=== PATIENT | female | born 1965 | race Caucasian/White ===

== ENCOUNTER 2025-01-13 00:44 | Inpatient (IN) | payer MEDICAID ==
[~2025-01-13] VITALS: Ht 152.4 cm; Wt 95.5 kg
[2025-01-13] VITALS (18 sets, daily range): BP systolic 94–160; BP diastolic 40–85; PULSE 96–120; RESP 12–20; TEMP 98.1–98.5; O2SAT 93–99
--- NOTE | 2025-01-13 00:49 | Physician Documentation ---
History of Present Illness Stated Complaint: XFER Time Seen by MD: 00:47 OK to notify your PCP?: Yes Source: patient, RN/MD, RN notes reviewed, old records Mode of Arrival: EMS Exam Limitations: no limitations HPI 59 year old female seen in bed 09 presents to the emergency department via EMS as a transfer from [place] due to obstructive uropathy. HPI per [place]: Ada Marquez is a 59 year olf female with a history of diabetes, CHF, CVA, seen last evening and diagnosed with UTI who presents to the ED for evaluation of vomiting and unable to take antibiotics last night and a dose this morning however over the course of today she shas had persistent nausea with non bloody nonbilious emisin on arrival to Ed. She complains of abdominal pain midline which is new from last evening, sharp intermittent increased intensity up to an 8/1, increased frequency of urination and mild dysuria, koffi flank pain. She denies associated chest pain, shortness of breath, cough, diarrhea, extremity edema. Previous abdominal surgeries include hysterectomy, hernia repair. Imaging per [place]: CT Abdomen Pelvis wo IV Contrast: Impressions: 1. Worsening right sided hydronephrosis and hydroureter with obstructing mid ureter stone in new since the prior exam. 2. 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 Significant Labs: WBC: hortencia from 13 to 20. Creatinine hortencia from 1.9 to 2.18 Glucose: 458 Lactic Acid: 2.9 Medication Reconciliation Allergies: Coded Allergies: codeine (Verified Allergy, Mild, VERTIGO, 01/13/25) lactose (Verified Allergy, Mild, N/V, 01/13/25) sulfamethoxazole (Verified Allergy, Mild, RASH, 01/13/25) trimethoprim (Verified Allergy, Mild, RASH, 01/13/25) Uncoded Allergies: CEFTRIXONE (Allergy, Mild, RASH, 01/13/25) Scheduled Dapagliflozin Propanediol (Farxiga), 1 TAB PO DAILY, (Reported) Furosemide (Furosemide), 1 TAB PO DAILY, (Reported) Insulin Glargine,Hum.rec.anlog* (Lantus*), 30 UNITS SQ HS, (Reported) Lisinopril (Lisinopril), 1 TAB PO DAILY, (Reported) Metformin HCl (Metformin HCl), 1 TAB PO BID, (Reported) Miscellaneous Medications Atorvastatin Calcium (Atorvastatin Calcium), (Reported) Gabapentin (Gabapentin), (Reported) Nph, Human Insulin Isophane (Novolin N), SQ, (Reported) Ropinirole Hcl (Ropinirole Hcl), (Reported) Unable to Obtain Medications (Unable to Obtain Medications), (Reported) Durable Medical Equipment Blood-Glucose Sensor (Dexcom G7 Sensor), (Reported), (DME) Past Medical History Past Medical History: CVA/TIA/Stroke, Congestive Heart Failure, Hernia, Diabetes Past Surgical History: hysterectomy, other Review of Systems All Other Systems at this time: Reviewed and Negative ROS As stated above in the HPI, otherwise all systems are reviewed and negative. Physical Exam Vital Signs: RN Vital Signs have been reviewed: Yes Pulse Oximetry Reflects: adequate oxygenation Physical Exam General: [place]. The patient is well developed, well nourished, nontoxic appearing and is in no acute distress. Skin: [place], warm and dry with no rashes. HEENT: Head was normocephalic and atraumatic. Eyes - pupils equal, round, reactive to light and accommodation. Extraocular movements were intact. Conjunctivae were nonicteric. Ears - bilateral tympanic membranes were normal. The mouth and oropharynx were clear with moist mucous membranes. There were no pharyngeal exudates or erythema. Neck: Supple and nontender. There was no jugular venous distention, lymphadenopathy, thyromegaly or masses. Chest: Clear to auscultation bilaterally without wheezes, rales or rhonchi. No accessory muscle use. No dullness to percussion. Heart: Rate regular and rhythmic. S1, S2. No murmurs. Palpation of the chest wall was normal. No rubs or thrills. Abdomen: Hypoactive bowel sounds. Tenderness to palpitation in the midline. and nondistended. No guarding or rebound. No hepatosplenomegaly or palpable masses. Extremities: No cyanosis, clubbing or edema. The patient moves all extremities. Pulses were equal and symmetric. Neurologic: Cranial nerves II-XII were intact. Sensation was intact to light touch throughout. Motor strength was 5/5 in all four extremities. Deep tendon reflexes were intact in both upper and lower extremities. Psychologic: The patient was oriented to person, place and time. The patient demonstrated appropriate judgement and insight. Progress Progress Note 0208: Admission orders were kindly entered at this time. Results/Orders Reviewed/noted all lab results: Yes Results/Orders Orders - RIVAS LOZA MD Cbc/Diff (01/13/25 00:47) MG (01/13/25 00:47) Urinalysis, Cult If Indicated (01/13/25 00:47) BMP (01/13/25 00:47) Re-Evaluation Re-Evaluation : Re-Evaluation: Improved Progress Patient was seen and examined. Patient is given reassurance. Patient was transferred from a facility up in [facility] for obstructive uropathy. Patient is being transferred for emergent urology consultation. Laboratory work was reobtained showing continued leukocytosis with a WBC of 18.7 no anemia left shift of 87.6. The patient's chemistry shows elevated glucose at 3:30 a.m. but also a BUN of 22 and a creatinine of 2.26. The renal failure is assumed to be new. Patient was hydrated given additional fluids. Procalcitonin was also elevated at 8.38 consistent with infection. Patient's hyperglycemia was treated with some insulin. Patient was already treated at the other facility. Messages were left with Urology as well as the hospitalist service who kindly agreed to admit the patient for further workup and care. 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 Pulse oximetry monitor interpretation shows normal oxygenation at 98% room air, normal, my interpretation. EKG/XRAY/CT/US/VASC/MRI EKG : Additional Comment [facility] Test Date: 2025-01-13 Test Time: 00:59:00 Pat Name: ADA MARQUEZ Department: [facility] Patient ID: [facility]-[id number] Room: Gender: F Park Maintainer: : 1965 Requested By: RIVAS LOZA Order Number: [id number] Reading MD: Dr. Rivas Loza Measurements Intervals [place] Rate: 97 P: 30 [place]: 160 QRS: -7 QRSD: 76 T: 18 QT: 366 QTc: 465 Interpretive Statements Sinus rhythm Borderline T abnormalities, anterior leads Baseline wander in lead(s) I,aVL,V2 Electronically Signed On 01-13-2025 1:31:[address] Rivas Loza Please click the below link to view image of tracing. EKG Date and Time:01/13/25 0059 Electronically Signed by: RIVAS LOZA MD Date and Time: 01/13/25 0131 Medical Decision Making Additional info obtained from: old records Differential Dx:Considerations: Include: Appendicitis, Bowel obstruction, Cholangitis, Cholelithasis, Constipation, Esophageal rupture, Esophagitis, Gastritis/PUD, Gastroenteritis, GI hemorrhage, Hernia, Hepatitis, Inflammatory BD, Ischemic bowel, Pancreatitis, PID, Urinary tract infection, Urolithiasis, Other Departure Time of Disposition: 02:23 Disposition: 09 ADMITTED INPATIENT Admitted to Inpatient Unit: yes, to hospitalist, other (Urology) Admission Level of Care: Med/Surg with Tele Impression: Primary Impression: UTI (urinary tract infection) Qualified Codes: N30.01 - Acute cystitis with hematuria Additional Impression: Obstructive uropathy Condition: Fair Referrals: NO PRIMARY CARE PROVIDER (PCP) Education Educated: Patient Educated regarding: diagnosis Critical Care Note Total Time (mins): 30 Critical Care Note The very real possibility of a deterioration of this patient's condition required the highest level of my preparedness for sudden, emergent intervention. I provided critical care services, which included medication orders, frequent reevaluations of the patient's condition and response to treatment, ordering and reviewing test results, and discussing the case with various consultants. Excludes time spent performing separately billable procedures. The critical care time associated with the care of the patient was 30 minutes. Signature Scribe Signature: Scribed for Rivas Loza MD by Jose Carlos Mendez . 01/13/25 01:46 Attestation: The note accurately reflects work and decisions made by me.Rivas Loza MD 01/13/25 00:49 RIVAS LOZA MD Jan 13, 2025 00:49 JOSE CARLOS RODRIGUEZ Jan 13, 2025 01:38
--- NOTE | 2025-01-13 01:00 | ELECTROCARDIOGRAPH REPORT ---
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 Rivas Lockett Measurements Intervals [place] Rate: 97 P: 30 [place]: 160 QRS: -7 QRSD: 76 T: 18 QT: 366 QTc: 465 Interpretive Statements Sinus rhythm Borderline T abnormalities, anterior leads Baseline wander in lead(s) I,aVL,V2 Electronically Signed On 01-13-2025 1:31:[address] Rivas Lockett Please click the below link to view image of tracing.
[2025-01-13 01:32] LABS: MEAN PLATELET VOLUME 6.8 FL (7.4-10.4); RED CELL DISTRIBUTION WIDTH 14.2 % (11.5-14.5)
[2025-01-13 01:43] LABS: CREATININE 2.26 MG/DL (0.40-0.90); TOTAL CARBON DIOXIDE 25.0 MMOL/L (24-32); eCRCL 19 ML/MIN; eGFR 22 ML/MIN
[2025-01-13] MEDS: insulin regular, human 10 units/0.1 ml syringe SQ ONE (01:59)
[2025-01-13] MEDS ORDERED: mag hydrox/Alum hydrox/simeth 30ml oral suspension PO PRN (02:05)
[2025-01-13] MEDS ORDERED: magnesium hydroxide 30ml (MOM) UD suspension PO PRN (02:05)
[2025-01-13] MEDS ORDERED: piperacillin/tazo 4.5gm/100ml 100 ML IV SCH (02:05)
[2025-01-13] MEDS ORDERED: magnesium Cl slow-release 64mg tablet PO PRN (02:05)
[2025-01-13] MEDS ORDERED: magnesium sulf-water 4G/100mL 100 ML IV PRN (02:05)
[2025-01-13] MEDS ORDERED: HYDROcodone/acetaminophen 5mg/325mg tablet PO PRN (02:05)
[2025-01-13] MEDS ORDERED: magnesium sulf-water 2g/50mL 50 ML IV PRN (02:05)
[2025-01-13] MEDS ORDERED: potassium Cl 40MEQ/1/2NS 520ml 520 ML IV PRN (02:05)
[2025-01-13] MEDS ORDERED: UNABLE TO OBTAIN (02:19)
--- NOTE | 2025-01-13 02:24 | HISTORY AND PHYSICAL-Residence ---
History & Physical Providers to CC Resident Creating Document: RAVI CAMPBELL, RES CC: IVETTE EPPERSON MD ~ History of Present Illness Reason for Admit\Complaint: Vomitings and abdominal pain History of Present Illness A 59-year-old female with past medical history of diabetes, CHF, CVA with no residual deficits presented as a transfer from [facility] in view of abdominal pain and vomitings. Patient states that she has been having multiple episodes of vomitings with associated nausea disabling her to take any antibiotics prescribed for UTI since two days. Patient also complains of abdominal pain umbilical in location with 8/10 in severity, sharp in character with no radiation, no aggravating or relieving factors. Patient endorses increased frequency of urination mild dysuria, denies flank pain, fever, chills. Patient denies chest pain, SOB, cough, diarrhea. Allergies: Coded Allergies: codeine (Verified Allergy, Mild, VERTIGO, 01/13/25) lactose (Verified Allergy, Mild, N/V, 01/13/25) sulfamethoxazole (Verified Allergy, Mild, RASH, 01/13/25) trimethoprim (Verified Allergy, Mild, RASH, 01/13/25) Uncoded Allergies: CEFTRIXONE (Allergy, Mild, RASH, 01/13/25) Past Medical History Past Medical History CHF DM Edema CVA TIA Past Surgical History Surgical History Comment Hernia repair Past Social History Social History Comment Smoked for three years and quit at the age of 19 Former marijuana consumption, quit currently Denies alcohol or illicit drug use Lives at home with her has been Goes to [facility] care ROS ROS All other systems reviewed in full and negative except for the pertinent positives mentioned in HPI Exam Vitals: Vital Signs Date Time Temp Pulse Resp B/P (MAP) Pulse Ox O2 Delivery O2 Flow Rate FiO2 01/13/25 02:11 16 01/13/25 00:50 98.3 98 97 General: General: Morbidly obese woman, Alert, awake, oriented, not in acute distress HEENT: PERRLA, no icterus, pallor, lymphadenopathy, carotid bruit, features of hirsutism Respiratory system: Bilateral vesicular breath sounds heard, no adventitious breath sounds CVS: S1-S2 heard, no murmurs/rubs/gallop GI: Tenderness in the lower abdomen and umbilical region, Soft, no organomegaly, no guarding/rigidity, bowel sounds present Neuro: No focal neurological deficits present Extremities: No edema cyanosis clubbing/deformities Skin: Warm and dry Diagnostic Data Last Recorded Lab Results: 01/13/25 0120 01/13/25 0120 Advance Care Planning Advanced Care plannin - 30 Minutes (I spent 20 minutes discussing various resuscitative measures and the patient decided to be full code) Additional Plan Assessment: A 59-year-old female with a past medical history of DM, CVA with no residual focal deficits presented to the ED as a transfer in view of abdominal pain and vomitings. Patient was diagnosed with UTI, prescribed oral antibiotics two days ago. But patient is unable to take any antibiotics and on further imaging patient was found to have staghorn calculus with hydronephrosis in bilateral renal pelvises. Patient is admitted for the evaluation management of infected staghorn calculi and obstructive uropathy. 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 for nausea and vomitings, pain management Follow up with urinalysis and culture, ESR and procalcitonin Urology consultation in a.m. Prerenal KIEL probably secondary to renal tubular stasis Elevated BUN and creatinine Continue IV fluids as per above Continue to monitor BMP Diabetes mellitus type 2 Follow up with A1c Elevated blood sugars Insulin Lantus: 19 units, moderate dose sliding scale insulin CHF, not in acute exacerbation Pending med rec Follow up with echo History of CVA Pending med rec Possible sleep apnea Outpatient follow up Code status: Full code Diet: NPO DVT prophylaxis: SCD Disposition: Admit to surgical, urology consult in a.m. Ravi Campbell MD Internal Medicine, PGY 2 I saw and discussed the care with the resident Agree with assessment and plan Date of Service: Jan 13, 2025 Billing Provider: IVETTE EPPERSON MD, SIVA, RES Jan 13, 2025 02:24 IVETTE EPPERSON MD Jan 13, 2025 04:56
[2025-01-13] MEDS ORDERED: DEXTROSE 15 GM of carb/4 tabs (each vial/BOTTLE has 4 tablets) PO PRN ×2 (02:25)
[2025-01-13] MEDS ORDERED: glucagon, human recombinant 1mg kit SUBCUT PRN (02:25)
[2025-01-13] MEDS ORDERED: dextrose 50%-water 50ml dispensing syringe IV PRN ×2 (02:25)
[2025-01-13] MEDS ORDERED: ketorolac trometh 15mg/ml vial 15 MG/ML ML IV PRN (02:45)
[2025-01-13] MEDS: ondansetron/PF 4mg/2ml inj IV PRN (03:01)
[2025-01-13] MEDS: piperacillin/tazo 4.5gm/100ml 100 ML IV ONE ×2 (03:03→03:04)
[2025-01-13] MEDS: normal saline 1000ml 1,000 ML IV SCH (03:03)
[2025-01-13] MEDS: INSULIN LISPRO 100 UNIT/ML INSULN.PEN MULTI-DOSE SQ SCH (04:40)
[2025-01-13] MEDS: INSULIN LISPRO 100 UNIT/ML INSULN.PEN MULTI-DOSE SQ ONE (04:42)
[2025-01-13 05:09] LABS: LEUKOCYTE ESTERASE ,URINE SMALL (Neg); NITRITES, URINE NEGATIVE (Neg); OCCULT BLOOD,URINE MODERATE (Neg)
[2025-01-13 05:14] LABS: UA COLLECTION TYPE NON-SPECIFIED
[2025-01-13 05:17] LABS: SQUAMOUS EPITHELIAL CELL,UR MODERATE /LPF (FEW); YEAST MANY /HPF (NEGATIVE)
[2025-01-13] MEDS: piperacillin/tazo 4.5gm/100ml 100 ML IV SCH (08:00)
[2025-01-13] MEDS: K and/or MAG REPLACEMENT MC SCH (08:00)
[2025-01-13] MEDS: docusate sod 100mg capsule PO SCH (08:47)
[2025-01-13] MEDS: metoclopramide 5 mg/ml inj IV PRN (13:18)
--- NOTE | 2025-01-13 14:50 | CONSULTATION REPORT ---
Consult Providers to CC ~ History of Present Illness Reason for Admit\Complaint: Right ureteral stone History of Present Illness Patient presented with abdominal pain and was found to have a right ureteral stone. She has bilateral staghorn stones, but a ureteral stone as well. She is having significant pain, leukocytosis, and discomfort from that. She has had stones in the past. Significant pain from the stone, lots of nausea and vomiting. Allergies: Coded Allergies: codeine (Verified Allergy, Mild, VERTIGO, 01/13/25) lactose (Verified Allergy, Mild, N/V, 01/13/25) sulfamethoxazole (Verified Allergy, Mild, RASH, 01/13/25) trimethoprim (Verified Allergy, Mild, RASH, 01/13/25) Uncoded Allergies: CEFTRIXONE (Allergy, Mild, RASH, 01/13/25) Home Medications Home Medications Active Reported Unable to Obtain Medications (Non-Formulary Medication) Each ROS ROS A pertinent 10 point review of systems was performed and was normal except as otherwise noted. Please also see HPI for added review of systems. Exam Vitals: Vital Signs Date Time Temp Pulse Resp B/P (MAP) Pulse Ox O2 Delivery O2 Flow Rate FiO2 01/13/25 11:00 98.3 98 20 156/81 (106) 98 Room Air 01/13/25 02:20 2.0 General: General: Awake and Alert, no acute distress. HEENT: HEENT: Conjunctiva pink, Sclera clear, Mucus Membranes moist. Neck: Neck: Supple without masses and tenderness. Chest: Resp: Unlabored. Cardiovascular: Heart: Regular Rate and rhythm Abdomen: Abdomen: Soft and non tender no organomegaly Extremities: Extremities: No cyanosis,clubbing or edema. Skin: Skin: Warm and Dry. Diagnostic Data Last Recorded Lab Results: 01/13/25 0120 01/13/25 0120 Problems: (1) Ureteral stone with hydronephrosis Status: Acute Assessment & Plan: Patient has an obstructing stone with hydronephrosis and significant pain as a result. Patient needs stent placement for decompression of her stone. I discussed this in detail with the patient. I discussed risks of the surgery including infection, bleeding, damage to surrounding tissues, and need for subsequent procedures. I discussed alternatives including medical expulsive therapy. I discussed benefits including decompression of the kidney and allowing for pain control as well as for drainage of the kidney. After discussion patient consented to the procedure. We discussed that the stones would then have definitive surgery in several weeks. - OR for cystoscopy, right retrograde pyelogram, right ureteral stent placement VENTURA HAMMONDS MD Jan 13, 2025 14:50
[2025-01-13] MEDS ORDERED: labetalol 20mg/4ml (5mg/ml) syringe IV PRN (16:05)
[2025-01-13] MEDS ORDERED: meperidine/PF 25mg/ml syringe IV PRN ×3 (16:05)
[2025-01-13] MEDS ORDERED: ondansetron/PF 4mg/2ml inj IV PRN (16:05)
[2025-01-13] MEDS ORDERED: morphine 4 MG/ML inj SYRINge IV PRN (16:05)
[2025-01-13] MEDS ORDERED: enalaprilat 1.25mg/ml 2ml vial IV PRN (16:05)
[2025-01-13] MEDS: ringers solution, lacted 1,000 ML IV SCH (16:05)
[2025-01-13] MEDS ORDERED: LISI5TAB22 PO (16:10)
[2025-01-13] MEDS ORDERED: DAPA5TAB PO (16:10)
[2025-01-13] MEDS ORDERED: NPH,100V2 SQ (16:10)
[2025-01-13] MEDS ORDERED: GABA-535 (16:10)
[2025-01-13] MEDS ORDERED: ATOR40TA72 (16:10)
[2025-01-13] MEDS ORDERED: BLOO-1948 (16:10)
[2025-01-13] MEDS ORDERED: LANTUS SQ (16:10)
[2025-01-13] MEDS ORDERED: ROPI0.5T37 (16:10)
[2025-01-13] MEDS ORDERED: METF-1203 PO (16:10)
[2025-01-13] MEDS ORDERED: FURO20TA4 PO (16:10)
[2025-01-13] MEDS ORDERED: iohexol 300 MG/1 ML 50ml polymer ONE (16:23)
[2025-01-13] MEDS ORDERED: Insulin regular, human (NovoLIN R) inj ONE (16:29)
[2025-01-13] MEDS ORDERED: midazolam 1 mg/ML 2ml injection ONE (16:57)
[2025-01-13] MEDS ORDERED: fentaNYL/PF 50MCG/1 ML 2ML syringe ONE (16:57)
--- NOTE | 2025-01-13 17:28 | OPERATIVE REPORT ---
Operative Report Providers to ~ Date of Procedure: Jan 13, 2025 Pre-Operative Diagnosis: Infected kidney stone, Obstructive uropathy Post-Operative Diagnosis SAME as PRE-Op Procedure Performed Cystoscopy, right retrograde pyelogram, right ureteral stent placement. Surgeon: MD Patricio Utilization Management Rn None Anesthesiologist: Mitchell Bell Type of Anesthesia: General Findings: Purulent urine, wide open right ureter. Hydronephrosis. Complications None Prosthetics\Implants used: Right 6 x 24 double J ureteral stent. Estimated Blood Loss: Minimal Specimen Removed: None Description of Procedure: Patient was prepped and draped in the normal sterile fashion. A timeout was performed. A [address] helenian cystoscope was inserted via urethra. The urine was purulent, there is a large stone in the bladder. Bladder was irrigated out and the right ureteral orifice was identified, patulous appearing. The [address] st helenian open ended catheter was inserted and a retrograde pyelogram was performed. The right ureter showed hydronephrosis all the way to the level of the kidney. A 6 st helenian x 24 double J ureteral stent was then passed over the wire into the right ureter. Wire was removed and there was good coil seen on the proximal portion of the stent on spot fluoroscopy, and good coil seen on the distal portion on direct visualization. VENTURA HAMMONDS MD Jan 13, 2025 17:27
[2025-01-13] MEDS: iohexol 300 MG/1 ML 50ml polymer IV ONE (18:12)
--- NOTE | 2025-01-13 19:03 | CARDIOLOGY REPORT ---
APPROVED REPORT EXAM: Comprehensive 2D, Doppler, and color-flow Echocardiogram. Patient Location: 352 A Blood Pressure: 156/81 mmHg Heart Rate: 98 bpm Rhythm: SINUS Indications CONGESTIVE HEART FAILURE DIABETES MELLITUS CEREBRAL VASCULAR ATTACK Dental Sales Representative: none Previous echo: none 2D Dimensions IVSd 0.9 (0.7-1.1cm) LVDd 3.7 cm PWd 1.1 (0.7-1.1cm) IVSs 1.2 (0.8-1.2cm) LVDs 2.6 (2.5-4.0cm) PWs 1.1 (0.8-1.2cm) LVOT Diameter 1.88 (1.8-2.4cm) LVEF(%) 58.3 (>50%) Ao Asc Diam.2.86 cmFS (%) 30.1 % SV 34.1 ml CO 2.7 L/min M-Mode Dimensions Left Atrium(MM) 3.40 (2.5-4.0cm) IVSd 0.93 (0.7-1.1cm) LVDd 3.33 (4.0-5.6cm) Aortic Root 2.68 (2.2-3.7cm) PWd 1.03 (0.7-1.1cm) Aortic Cusp Exc 1.72 (1.5-2.0cm) IVSs 1.34 cm LVDs 2.27 (2.0-3.8cm) FS (%) 32 % PWs 1.17 cm ESV(Teich) 17.4 ml LVEF(%) 61 (>50%) Mitral Valve MV E Velocity 83.6 cm/s MV Peak Gr. 5 mmHg MV DECEL TIME 114 ms MV A Velocity 116.7 cm/s MV PHT 42 ms E/A Ratio 0.7 MVA (PHT) 5.24 cm2 MV KJgz517.8 cm/s TDI Medial E' P. V 7.79 cm/s E/Medial E' 10.7 Pulmonary Vein S1 Velocity 48.6 cm/s D2 Velocity 39.8 cm/s PVa Ckqtiztu29.7 cm/s PVa [id number] msec LEFT VENTRICLE Normal LV size and wall thickness. Overall systolic function is normal. LVEF is 55-60%. RIGHT VENTRICLE RV is normal size and function. ATRIA The left atrium size is normal. AORTIC VALVE Trileaflet AV appears mildly sclerotic without stenosis or insufficiency. MITRAL VALVE Mild MV annular calcification without stenosis. Mild eccentric, anteriorly directed regurgitation. TRICUSPID VALVE TV appears structurally normal with trace regurgitation. PULMONIC VALVE Normal PV without stenosis, physiologic insufficiency. GREAT VESSELS Aortic root is normal in size. Ascending aorta is normal in size. PERICARDIUM Normal pericardium. No effusion. Other Information Study Quality: Adequate, but difficult due to body habitus. Conclusion Normal LV size and wall thickness. Overall systolic function is normal. LVEF is 55-60%. RV is normal size and function. The left atrium size is normal. Trileaflet AV appears mildly sclerotic without stenosis or insufficiency. Mild MV annular calcification without stenosis. Mild eccentric, anteriorly directed regurgitation. TV appears structurally normal with trace regurgitation. Normal pericardium. No effusion.
[2025-01-13] MEDS: insulin glargine (Lantus) pen - multi-dose SQ SCH (21:38)
[2025-01-14 05:40] LABS: MEAN PLATELET VOLUME 7.2 FL (7.4-10.4); RED CELL DISTRIBUTION WIDTH 14.5 % (11.5-14.5)
[2025-01-14 05:48] LABS: CHOL/HDL RATIO 1.8 (0.00-4.99); CREATININE 1.68 MG/DL (0.40-0.90); LDL CHOLESTEROL 23 MG/DL (50-100); TOTAL CARBON DIOXIDE 23.7 MMOL/L (24-32); eCRCL 26 ML/MIN; eGFR 31 ML/MIN
[2025-01-14 08:00] VITALS: RESP 17; O2SAT 98
[2025-01-14] MEDS: potassium Cl 20 mEq SR tablet PO PRN ×2 (08:53→17:52)
[2025-01-14 09:05] VITALS: RESP 16
[2025-01-14 09:10] LABS: OSMOLALITY 289 MOSM/K (280-300)
--- NOTE | 2025-01-14 16:05 | PROGRESS NOTE- Residence ---
Progress Note - Resident Providers to CC Resident Creating Document: OCTAVIA CISNEROS, PARAMJIT ~ Antibiotic Timeout Antibiotic Ordered?: Yes Subjective The patient has been evaluated at the bedside. The patient reports improvement of pain. Objective Vital Signs Date Time Temp Pulse Resp B/P (MAP) Pulse Ox O2 Delivery O2 Flow Rate FiO2 01/14/25 09:05 16 Room Air 01/14/25 08:00 98 01/13/25 22:00 98.5 120 107/55 (72) 01/13/25 18:20 0.0 Physical exam: General: Well alert, well oriented, not confused, not agitated, not in acute distress, well cooperated during the physical. HEENT: Conjunctive are pink, sclerae clear, no icterus, pupil is equal in both sides, reactive to light, no ear discharge, no pharyngeal erythema or an edema, presence of hirsutism. Neck: Supple, no JVD, no lymphadenopathy and thyromegaly. Chest: Equal air entry on both lungs, no additional sounds no rhonchi no wheezing at the moment. Cardiovascular: S1-S2 regular sinus rhythm and, regular rate, no gallops, no rubs, no murmurs Abdomen: No visible peristalsis, Bowel sounds present on auscultation, soft, nontender, no guarding, no rigidity Extremities: No obvious deformities, no pitting edema bilaterally, capillary refill intact, peripheral pulsations are intact on both sides Central Nervous System: No focal neurological deficits, no motor or sensory weakness in all 4 extremities, could move all 4 extremities, 2+ deep tendon reflexes, negative Babinski. Musculoskeletal: No joint swelling, deformities, inflammations, and no scoliosis and back tenderness Skin: Warm and dry. Result Diagram: 01/14/2544001/14/25440 Assessment Assessment 59 years old female patient came to the hospital with chief complaint of abdominal pain and vomiting. The patient was admitted with urinary tract infection and kidney stones. 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 for nausea and vomitings, pain management Follow up with urinalysis and culture, ESR and procalcitonin Urology consultation in a.m. 01/14/2025: The patient underwent right ureteral stent placement on 01/13/[address] Curry. Urine culture and blood culture no growth after one day. Continue Zosyn IV t.i.d. Culturelle 70406 mg p.o. b.i.d. Pain control with morphine. Continue NS at 100 mL/hour. 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 uropathy-improving: Elevated BUN and creatinine Continue IV fluids as per above Continue to monitor BMP 01/06/2025: The patient underwent right ureteral stent placement. Kidney function currently improving. Continue NS at 100 mL/hour. Uncontrolled type 2 diabetes mellitus: Follow up with A1c Elevated blood sugars Insulin Lantus: 19 units, moderate dose sliding scale insulin. 01/14/2025: Hemoglobin A1c 9.9. Insulin Lantus increased to 23 units HS. Continue moderate dose sliding scale insulin. Chronic diastolic CHF, not in acute exacerbation Echocardiogram: LVEF 55-60%. Possible sleep apnea Outpatient follow up Code status: Full code DVT prophylaxis: SCDs Analgesia/sedation: Morphine Line/tube: PIV GI prophylaxis: None Nutrition: 75 carb controlled diet PT: Ordered Prognosis: Guarded Disposition: Continue medical management. Anticipated discharge tomorrow. Octavia Power Internal Medicine Resident [facility] Date of Service: Jan 14, 2025 Billing Provider: MANUEL LAM MD Common Visit Codes: 49367-[id number] INP/OBS CARE(HIGH) OCTAVIA CISNEROS, RES Jan 14, 2025 16:05 MANUEL LAM MD Jan 14, 2025 21:09
[2025-01-14 18:00] VITALS: BP 137/62; PULSE 100; RESP 19; TEMP 99.4; O2SAT 98
[2025-01-14] MEDS: lactobacillus rhamnosus 10,000 MMU CELLS/CAPSULE PO SCH (19:30)
[2025-01-14] MEDS: insulin glargine (Lantus) pen - multi-dose SQ SCH (21:58)
[2025-01-14 22:00] VITALS: BP 167/89; PULSE 97; RESP 15; TEMP 98.8; O2SAT 96
[2025-01-15 04:49] LABS: CREATININE,URINE RANDOM 45.0 MG/DL; UA UREA RANDOM 393.0 MG/DL
[2025-01-15 04:56] LABS: MEAN PLATELET VOLUME 7.1 FL (7.4-10.4); RED CELL DISTRIBUTION WIDTH 14.3 % (11.5-14.5)
[2025-01-15 05:01] LABS: OSMOLALITY UA 383.0 MOSM/K (50-1400)
[2025-01-15 05:23] LABS: CREATININE 1.39 MG/DL (0.40-0.90); TOTAL CARBON DIOXIDE 21.5 MMOL/L (24-32); eCRCL 31 ML/MIN; eGFR 39 ML/MIN
[2025-01-15 06:00] VITALS: BP 167/81; PULSE 98; RESP 14; TEMP 98.2; O2SAT 95
[2025-01-15 08:00] VITALS: RESP 16; O2SAT 96
[2025-01-15 11:00] VITALS: BP 145/75; PULSE 98; RESP 16; TEMP 97.3; O2SAT 95
--- NOTE | 2025-01-15 16:21 | PROGRESS NOTE- Residence ---
Progress Note - Resident Providers to CC Resident Creating Document: KJ CISNEROS, RES ~ Antibiotic Timeout Antibiotic Ordered?: Yes Subjective The patient has been evaluated at the bedside. The patient currently denies any pain or other symptoms. Objective Vital Signs Date Time Temp Pulse Resp B/P (MAP) Pulse Ox O2 Delivery O2 Flow Rate FiO2 01/15/25 11:00 97.3 98 16 145/75 (98) 95 Room Air 01/13/25 18:20 0.0 Physical exam: General: Well alert, well oriented, not confused, not agitated, not in acute distress, well cooperated during the physical. HEENT: Conjunctive are pink, sclerae clear, no icterus, pupil is equal in both sides, reactive to light, no ear discharge, no pharyngeal erythema or an edema, presence of hirsutism. Neck: Supple, no JVD, no lymphadenopathy and thyromegaly. Chest: Equal air entry on both lungs, no additional sounds no rhonchi no wheezing at the moment. Cardiovascular: S1-S2 regular sinus rhythm and, regular rate, no gallops, no rubs, no murmurs Abdomen: No visible peristalsis, Bowel sounds present on auscultation, soft, nontender, no guarding, no rigidity Extremities: No obvious deformities, no pitting edema bilaterally, capillary refill intact, peripheral pulsations are intact on both sides Central Nervous System: No focal neurological deficits, no motor or sensory weakness in all 4 extremities, could move all 4 extremities, 2+ deep tendon reflexes, negative Babinski. Musculoskeletal: No joint swelling, deformities, inflammations, and no scoliosis and back tenderness Skin: Warm and dry. Result Diagram: 01/15/252 01/15/25 0442 Assessment Assessment 59 years old female patient came to the hospital with chief complaint of abdominal pain and vomiting. The patient was admitted with urinary tract infection and kidney stones. 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 for nausea and vomitings, pain management Follow up with urinalysis and culture, ESR and procalcitonin Urology consultation in a.m. 01/14/2025: The patient underwent right ureteral stent placement on 01/13/[address] Curry. Urine culture and blood culture no growth after one day. Continue Zosyn IV t.i.d. Culturelle 40709 mg p.o. b.i.d. Pain control with morphine. Continue NS at 100 mL/hour. 01/15/2025: Mild improvement of leukocyte count although it is minimal. Continue monitoring. Continue Zosyn IV t.i.d. NS at 80 mL/hour. Continue Culturelle. 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 uropathy-improving: The patient underwent right ureteral stent placement. Kidney function currently improving. Continue NS at 80 mL/hour. Uncontrolled type 2 diabetes mellitus: Follow up with A1c Elevated blood sugars Insulin Lantus: 19 units, moderate dose sliding scale insulin. 01/14/2025: Hemoglobin A1c 9.9. Insulin Lantus increased to 23 units HS. Continue moderate dose sliding scale insulin. 01/15/2025: Increased Lantus to 27 units HS. Chronic diastolic CHF, not in acute exacerbation Echocardiogram: LVEF 55-60%. Possible sleep apnea Outpatient follow up Code status: Full code DVT prophylaxis: SCDs Analgesia/sedation: Morphine Line/tube: PIV GI prophylaxis: None Nutrition: 75 carb controlled diet PT: Recommended post-acute care. Prognosis: Guarded Disposition: Continue medical management. Anticipated discharge tomorrow. [facility] Resident [facility] Date of Service: Jan 15, 2025 Billing Provider: MANUEL LAM MD Common Visit Codes: [id number] INP/OBS CARE(HIGH) KJ CISNEROS, RES Jan 15, 2025 16:21 MANUEL LAM MD Jan 15, 2025 22:23
[2025-01-15 18:00] VITALS: BP 131/65; PULSE 96; RESP 20; TEMP 98.5; O2SAT 99
[2025-01-15] MEDS: insulin glargine (Lantus) pen - multi-dose SQ SCH (21:03)
[2025-01-15 22:00] VITALS: BP 151/77; PULSE 93; RESP 14; TEMP 98.1; O2SAT 97
[2025-01-16 04:59] LABS: MEAN PLATELET VOLUME 7.0 FL (7.4-10.4); RED CELL DISTRIBUTION WIDTH 14.7 % (11.5-14.5)
[2025-01-16 05:12] LABS: CREATININE 1.28 MG/DL (0.40-0.90); TOTAL CARBON DIOXIDE 27.2 MMOL/L (24-32); eCRCL 34 ML/MIN; eGFR 43 ML/MIN
[2025-01-16 06:00] VITALS: BP 122/58; PULSE 91; RESP 17; TEMP 98; O2SAT 96
[2025-01-16 11:00] VITALS: BP 156/75; PULSE 92; RESP 17; TEMP 99.2; O2SAT 99
[2025-01-16] MEDS ORDERED: LACT1CAP26 PO (14:49)
[2025-01-16] MEDS ORDERED: LEVO-65 PO (14:49)
--- NOTE | 2025-01-16 18:39 | DISCHARGE SUMMARY-Residence ---
Discharge Summary Providers to CC Resident Creating Document: NHI ELISEOCTAVIA Jacques, RES ~ Discharge Summary Admission Diagnosis: Infected kidney stone, Obstructive uropathy Hospital Course DATE OF ADMISSION: 01/13/2025 DATE OF DISCHARGE: 01/16/2025 Discharge Diagnosis\Comment: Infected kidney stone, right s/p right ureteral stent placement on 01/13/2025 Staghorn calculi, bilateral Obstructive uropathy 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 uropathy-improved Uncontrolled type 2 diabetes mellitus Chronic diastolic CHF, not in acute exacerbation Possible sleep apnea Operations\Procedures: Right ureteral stent placement. Consultants: Urology Dr. Curry Complications: None Condition on DC: Stable New Medications: Lactobacillus Rhamnosus (Culturelle) 10 Billion Cell Capsule 1 CAP PO BID for 30 Days, #60 CAP 0 Refills Levofloxacin (Levofloxacin) 500 Mg Tablet 1 TAB PO DAILY for 10 Days, #10 TAB Continued Medications: Atorvastatin Calcium (Atorvastatin Calcium) 40 Mg Tablet Dapagliflozin Propanediol (Farxiga) 5 Mg Tablet 1 TAB PO DAILY Furosemide (Furosemide) 20 Mg Tablet 1 TAB PO DAILY Gabapentin (Gabapentin) 400 Mg Capsule Insulin Glargine,Hum.rec.anlog* (Lantus*) 100 Unit/1 Ml Vial 30 UNITS SQ HS Lisinopril (Lisinopril) 5 Mg Tablet 1 TAB PO DAILY Metformin HCl (Metformin HCl) 500 Mg Tablet 1 TAB PO BID Nph, Human Insulin Isophane (Novolin N) 100 Unit/Ml Vial SQ Ropinirole Hcl (Ropinirole Hcl) 0.5 Mg Tablet Discontinued Medications: Unable to Obtain Medications (Unable to Obtain Medications) Each Discharge Summary: HPI: A 59-year-old female with past medical history of diabetes, CHF, CVA with no residual deficits presented as a transfer from [facility] in view of abdominal pain and vomitings. Patient states that she has been having multiple episodes of vomitings with associated nausea disabling her to take any antibiotics prescribed for UTI since two days. Patient also complains of abdominal pain umbilical in location with 8/10 in severity, sharp in character with no radiation, no aggravating or relieving factors. Patient endorses increased frequency of urination mild dysuria, denies flank pain, fever, chills. Patient denies chest pain, SOB, cough, diarrhea. Hospital course: 59-year-old female patient came to the hospital with chief complaint of abdominal pain and vomiting. The patient was diagnosed with infected right kidney stone. The patient was started on antibiotics, Urology Dr. Curry was consulted who performed a right ureteral stent placement on 01/13/2025, after the procedure the patient reported significant improvement of symptoms. Her WBC came down slowly, the patient was monitored closely. The patient lab work showed improvement of her infection. The patient remained hemodynamically stable, the patient had support at home. Physical therapy evaluated cleared for discharge home. The patient will be discharged home. Discharge course: The patient remained hemodynamically stable. The patient will be discharged with the following instructions: Come to the emergency department or call 911 if severe pain, fever sensation, urinary symptoms, chest pain, shortness of breath, palpitations is evidenced. Follow-up with Urology Dr. Curry within two weeks for stent removal. Follow-up with your primary care physician within two weeks. Take levofloxacin one tablet of 500 mg daily for 10 days. Take Culturelle one capsule every 12 hours for one month. Continue your home medications. Physical exam: General: Well alert, well oriented, not confused, not agitated, not in acute distress, well cooperated during the physical. HEENT: Conjunctive are pink, sclerae clear, no icterus, pupil is equal in both sides, reactive to light, no ear discharge, no pharyngeal erythema or an edema, presence of hirsutism. Neck: Supple, no JVD, no lymphadenopathy and thyromegaly. Chest: Equal air entry on both lungs, no additional sounds no rhonchi no wheezing at the moment. Cardiovascular: S1-S2 regular sinus rhythm and, regular rate, no gallops, no rubs, no murmurs Abdomen: No visible peristalsis, Bowel sounds present on auscultation, soft, nontender, no guarding, no rigidity Extremities: No obvious deformities, no pitting edema bilaterally, capillary refill intact, peripheral pulsations are intact on both sides Central Nervous System: No focal neurological deficits, no motor or sensory weakness in all 4 extremities, could move all 4 extremities, 2+ deep tendon reflexes, negative Babinski. Musculoskeletal: No joint swelling, deformities, inflammations, and no scoliosis and back tenderness Skin: Warm and dry. Vital Signs Date Time Temp Pulse Resp B/P (MAP) Pulse Ox O2 Delivery O2 Flow Rate FiO2 7/ 11:00 99.2 92 17 156/75 (102) 99 Room Air 01/13/25 18:20 0.0 Laboratory Tests Test 01/14/25 20:33 01/15/25 03:37 01/15/25 04:42 01/15/25 07:44 Glucometer 254 mg/dl 229 mg/dl Urine Eosinophils No eos /HPF Urine Osmolality 383 MOSM/K Urine Random Creatinine 45.0 MG/DL Urine Random Sodium 77 MEQ/L Urine Random Urea 393.0 MG/DL White Blood Count 14.2 X10'3 Red Blood Count 4.28 X10'6 Hemoglobin 12.6 g/dl Hematocrit 37.6 % Mean Corpuscular Volume 87.9 FL Mean Corpuscular Hemoglobin 29.5 PG Mean Corpuscular Hemoglobin Concent 33.6 g/dL Red Cell Distribution Width 14.3 % Platelet Count 243 X10'3 Mean Platelet Volume 7.1 FL Neutrophils (%) (Auto) 82.9 % Lymphocytes (%) (Auto) 8.9 % Monocytes (%) (Auto) 7.3 % Eosinophils (%) (Auto) 0.7 % Basophils (%) (Auto) 0.2 % Neutrophils # (Auto) 11.8 X10'3 Lymphocytes # (Auto) 1.3 X10'3 Monocytes # (Auto) 1.0 X10'3 Eosinophils # (Auto) 0.1 X10'3 Basophils # (Auto) 0.0 X10'3 CBC Comment Erythrocyte Sedimentation Rate 88 MM/HR Sodium Level 130 MMOL/L Potassium Level 3.9 MMOL/L Chloride Level 102 MMOL/L Carbon Dioxide Level 21.5 MMOL/L Anion Gap 7 Blood Urea Nitrogen 17 MG/DL Creatinine 1.39 MG/DL Estimated GFR/1.73 m2 39 ML/MIN BUN/Creatinine Ratio 12.2 Glucose Level 249 MG/DL Calcium Level 8.0 MG/DL C-Reactive Protein 15.04 MG/DL Albumin 1.6 G/DL Procalcitonin 1.96 NG/ML Chemistry Comments Test 01/15/25 17:09 01/15/25 20:47 01/16/25 04:32 01/16/25 07:54 Glucometer 173 mg/dl 182 mg/dl 171 mg/dl White Blood Count 13.0 X10'3 Red Blood Count 4.42 X10'6 Hemoglobin 13.1 g/dl Hematocrit 38.8 % Mean Corpuscular Volume 87.9 FL Mean Corpuscular Hemoglobin 29.6 PG Mean Corpuscular Hemoglobin Concent 33.7 g/dL Red Cell Distribution Width 14.7 % Platelet Count 236 X10'3 Mean Platelet Volume 7.0 FL Neutrophils (%) (Auto) 75.7 % Lymphocytes (%) (Auto) 11.5 % Monocytes (%) (Auto) 11.0 % Eosinophils (%) (Auto) 1.6 % Basophils (%) (Auto) 0.2 % Neutrophils # (Auto) 9.8 X10'3 Lymphocytes # (Auto) 1.5 X10'3 Monocytes # (Auto) 1.4 X10'3 Eosinophils # (Auto) 0.2 X10'3 Basophils # (Auto) 0.0 X10'3 CBC Comment Sodium Level 136 MMOL/L Potassium Level 3.4 MMOL/L Chloride Level 104 MMOL/L Carbon Dioxide Level 27.2 MMOL/L Anion Gap 5 Blood Urea Nitrogen 13 MG/DL Creatinine 1.28 MG/DL Estimated GFR/1.73 m2 43 ML/MIN BUN/Creatinine Ratio 10.2 Glucose Level 179 MG/DL Calcium Level 8.4 MG/DL Albumin 1.6 G/DL Chemistry Comments Test 01/16/25 12:32 Glucometer 146 mg/dl Echocardiogram: Normal LV size and wall thickness. Overall systolic function is normal. LVEF is 55-60%. RV is normal size and function. The left atrium size is normal. Trileaflet AV appears mildly sclerotic without stenosis or insufficiency. Mild MV annular calcification without stenosis. Mild eccentric, anteriorly directed regurgitation. TV appears structurally normal with trace regurgitation. Normal pericardium. No effusion. *Problems/Diagnosis: (1) Ureteral stone with hydronephrosis Status: Acute (2) Acute kidney injury Status: Acute (3) Obstructive uropathy Status: Acute Total Time Spent on D/C: > 30 Minutes Addendum Morbid obesity with a BMI of 41 Date of Service: Jan 16, 2025 Billing Provider: MANUEL LAM MD Common Visit Codes: [id number] INP/OBS CARE(HIGH) OCTAVIA CISNEROS, RES Jan 16, 2025 18:38 MANUEL LAM MD Jan 16, 2025 21:03
== END 2025-01-16 15:46 | disposition home or self-care (01) | DRG 463 ==
LOC: ER 00:45 → ED HOLD 02:08 → SUR 3N 05:00
PROVIDERS: ADMIT Internal Medicine; ATTEND Internal Medicine
PROC: BT1D1ZZ Fluoroscopy of Right Kidney, Ureter and Bladder using Low Osmolar Contrast (ICD-10-PCS; 2025-01-13)
PROC: 0T768DZ Dilation of Right Ureter with Intraluminal Device, Via Natural or Artificial Opening Endoscopic (ICD-10-PCS; principal; 2025-01-13 16:50)
DX: N13.6 Pyonephrosis (principal); N17.9 Acute kidney failure, unspecified; I50.32 Chronic diastolic (congestive) heart failure; E11.9 Type 2 diabetes mellitus without complications; E66.01 Morbid (severe) obesity due to excess calories; Z90.710 Acquired absence of both cervix and uterus; Z88.2 Allergy status to sulfonamides; Z88.5 Allergy status to narcotic agent; Z68.41 Body mass index [BMI] 40.0-44.9, adult
CPT/HCPCS: 36415; 80048; 80061; 81001; 82570; 82948; 83036; 83735; 83930; 83935; 84145; 84300; 84540; 85025; 85651; 86140; 87040; 87081; 87088; 87207; 93005; 93306; 96372; 97161; 97530; 99291; A4618; C1758; C1769; C2617; G0378; J1815; J2250; J2405; J2543; J2765; J3010; J7030; Q9967

== ENCOUNTER 2025-01-31 05:43 | Inpatient (IN) | payer MEDICAID ==
[~2025-01-31] VITALS: Ht 152.4 cm; Wt 83.0 kg
[~2025-01-31 05:43] MED LIST: ATOR40TA72; BLOO-1948; DAPA5TAB PO; FURO20TA4 PO; GABA-535; LACT1CAP26 PO; LANTUS SQ; LISI5TAB22 PO; NPH,100V2 SQ; ROPI0.5T37
[2025-01-31] MEDS ORDERED: NORepinephrine 32mg/250mL bag 250 ML IV SCH (05:50)
--- NOTE | 2025-01-31 06:00 | Physician Documentation ---
History of Present Illness ~ Chief Complaint: Abdominal Pain Stated Complaint: XFER Time Seen by MD: 05:46 HPI Patient presented to [facility] this evening if it was discovered to be suffering from urosepsis in the light of recent stent placement and removal by Dr. Curry, urologist. Patient presented to their emergency room with rigors and high blood sugar that has well as tachycardia. She was found to have pyelonephritis on the right side by CT scan. Stent was originally placed on January 12. Yesterday she had stent removed went home and then began to have chills and rigors. She was found to have a white blood cell count of 16 with a glucose of 437. She received vancomycin and Zosyn at sending facility and reported 30 milliliters/kilogram of IV fluids. During transport the patient became hypotensive and was started on Levophed. Currently the patient states she feels dazed but otherwise has no complaints. Medication Reconciliation Allergies: Coded Allergies: codeine (Verified Allergy, Mild, VERTIGO, 01/31/25) Patient mentioned she does not get vertigo with codeine but get hives and shortness of breaths and wants to stay on Tylenol for pain control lactose (Verified Allergy, Mild, N/V, 01/31/25) sulfamethoxazole (Verified Allergy, Mild, RASH, 01/31/25) trimethoprim (Verified Allergy, Mild, RASH, 01/31/25) Uncoded Allergies: CEFTRIXONE (Allergy, Mild, RASH, 01/13/25) Scheduled Aspirin (Aspirin EC), 1 TAB PO DAILY, (Reported) Atorvastatin Calcium* (Lipitor*), 1 TAB PO DAILY, (Reported) Dapagliflozin Propanediol (Farxiga), 1 TAB PO DAILY, (Reported) Ergocalciferol (Vitamin D2) (Vitamin D2), 1 CAP PO Q7D, (Reported) Furosemide (Furosemide), 1 TAB PO DAILY, (Reported) L. Rhamnosus GG/Inulin (Culturelle Capsule), 1 CAP PO DAILY, (Reported) Metformin HCl (Metformin HCl), 1 TAB PO BID, (Reported) Ropinirole Hcl (Ropinirole Hcl), 1.5 TAB PO QID, (Reported) Miscellaneous Medications Nph, Human Insulin Isophane (Novolin N), SQ, (Reported) Discontinued Medications Atorvastatin Calcium (Atorvastatin Calcium), (Reported) Discontinued Reason: Other Blood-Glucose Sensor (Dexcom G7 Sensor), (Reported), (DME) Discontinued Reason: Other Gabapentin (Gabapentin), (Reported) Discontinued Reason: patient no longer taking Insulin Glargine,Hum.rec.anlog* (Lantus*), 30 UNITS SQ HS, (Reported) Discontinued Reason: patient no longer taking Lactobacillus Rhamnosus (Culturelle), 1 CAP PO BID Discontinued Reason: Other Levofloxacin (Levofloxacin), 1 TAB PO DAILY Discontinued Reason: Auto Discontinued Lisinopril (Lisinopril), 1 TAB PO DAILY, (Reported) Discontinued Reason: Other Ropinirole Hcl (Ropinirole Hcl), (Reported) Discontinued Reason: Other Past Medical History Past Medical History: CVA/TIA/Stroke, Congestive Heart Failure, Hernia, Diabetes Past Surgical History: hysterectomy, other Review of Systems ROS All review of systems negative except as per HPI Physical Exam Vital Signs: Temperature: 98.4, Source: Oral, Heart Rate: 119, Respiratory Rate: 26, BP: 123/62, Pulse Oximetry: 94, Weight: 83.000 Physical Exam General: Patient is awake, alert, oriented x4 in no acute distress Head: Normocephalic and atraumatic. Eyes: Conjunctival normal. EOMI. PERRL. ENT: Mucous membranes moist. Neck: Supple, trachea is midline. Chest: Clear to auscultation bilaterally without rales, rhonchi, or wheezes. There is no accessory muscle use or retractions. Cardiac: Tachycardic and regular without murmurs, gallops, or rubs. Abd: Soft, nondistended, nontender, with normoactive bowel sounds. No guarding, rebound, or rigidity. Progress Results/Orders Results/Orders Completed Orders - ARMIN STILL MD Cbc/Diff (01/31/25 05:46) LA (01/31/25 05:46) Normal Saline 1000ml (0.9% Sodium Chlori (01/31/25 05:50) Norepinephrine 8mg/ 250ml Ns (Norepineph (01/31/25 06:10) CMP (01/31/25 06:47) Lactic,2hr (01/31/25 08:16) Vital Signs 01/31/25 01/31/25 01/31/25 01/31/25 05:44 05:58 06:01 06:10 Temp 98.4 Pulse 119 119 Resp 26 17 B/P (MAP) 123/62 92/47 (62) 95/70 Pulse Ox 94 97 O2 Flow Rate 0 01/31/25 01/31/25 01/31/25 06:53 06:58 07:52 Temp 99.9 99.9 Pulse 118 115 Resp 17 25 B/P (MAP) 129/110 (116) 105/65 (78) Pulse Ox 96 96 O2 Flow Rate 0 0 Laboratory Tests Test 01/31/25 06:47 01/31/25 07:03 White Blood Count 18.1 H Red Blood Count 4.03 L Hemoglobin 11.7 L Hematocrit 35.5 Mean Corpuscular Volume 88.2 Mean Corpuscular Hemoglobin 29.2 Mean Corpuscular Hemoglobin Concent 33.1 Red Cell Distribution Width 14.5 Platelet Count 274 Mean Platelet Volume 6.4 L Neutrophils (%) (Auto) 85.7 H Lymphocytes (%) (Auto) 7.6 L Monocytes (%) (Auto) 6.3 Eosinophils (%) (Auto) 0.1 Basophils (%) (Auto) 0.3 Neutrophils # (Auto) 15.5 H Lymphocytes # (Auto) 1.4 Monocytes # (Auto) 1.1 H Eosinophils # (Auto) 0.0 Basophils # (Auto) 0.1 CBC Comment Sodium Level 136 Potassium Level 3.7 Chloride Level 100 Carbon Dioxide Level 24.7 Anion Gap 11 Blood Urea Nitrogen 13 Creatinine 1.87 H Estimated GFR/1.73 m2 27 BUN/Creatinine Ratio 7.0 L Glucose Level 229 H Lactic Acid Level 3.4 H Calcium Level 8.2 L Total Bilirubin 0.5 Aspartate Amino Transf (AST/SGOT) 25 Alanine Aminotransferase (ALT/SGPT) 13 Alkaline Phosphatase 79 Total Protein 7.6 Albumin 1.7 L Globulin 5.9 H Albumin/Globulin Ratio 0.3 L Chemistry Comments Procalcitonin 3.62 H Microbiology Date/Time Source Procedure Growth Status 01/31/25 07:02 Blood Iv Start Blood Culture - Preliminary NEGATIVE (LESS THAN 24 HOURS) Resulted EKG/XRAY/CT/US/VASC/MRI EKG : Additional Comment EKG interpreted by myself shows time of 0556, rate 121, sinus tachycardia, normal axis, no ST changes Medical Decision Making Findings Patient presents to the emergency room sent from [facility] for urosepsis. Antibiotics and IV fluids initiated. Patient is on Levophed and we are attempting to wean her off this to hopefully avoid ICU admission. We will be consulting with Urology for definitive treatment. Oncoming physician to take over case. 7:30 a.m.: Care the patient was transferred to pr at 6:[address] Still. Patient's lab work is now back. Patient has received an additional 1 L of lactated Ringer's. Patient remains off of the Levophed. Patient remains septic however her blood pressure has improved to 100 systolic. Patient has been given IV Zosyn and IV vanco. Patient has worsening renal function with a creatinine of 1.87 up from 1.28. Patient's leukocytosis is worse at 18.1 compared to 13 on January 16. Patient's lactic acid is 3.4. Dr. Curry will be consulted. Patient may require repeat imaging. Patient will require admission for IV antibiotics. Test results and treatment plan and all of the above reviewed with the patient. 8:23 a.m.: Case discussed with our hospitalist Dr. Fairbanks. She will evaluate the patient for admission. Still have not heard from Dr. Curry. We will continue to call him and his office. CT results are pending. 8:50 a.m.: Case discussed with Dr. Curry. He provided lithotripsy yesterday. He has reviewed the CT scan. There was no need for urological intervention at this time. Patient only needs IV antibiotics. This information will be relayed to Dr. Fairbanks. Abdomen and pelvis CT scan with out IV contrast, indication: Infected kidney stone Impression: 1. 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 Staghorn calculus shows slight decrease in stone burden in the right moiety with interval development of gas in the right renal pelvis. Gas could be related to presence of the catheter or infection. Correlation with the clinical symptoms is recommended. Stable slight dilatation of the right renal pelvis. 2. Additional nonobstructive intrarenal calculi in both moieties of the horseshoe kidney similar to prior study. 3. Bladder wall thickening. Cystitis is not excluded. 4. Hepatic steatosis. 9:00 a.m.: Patient is re-evaluated. Patient's heart rate has improved. Patient's blood pressure remains soft in the mid 90s. We will continue to monitor. Patient is getting LR 200 mL/hour for maintenance fluids. Patient states that she feels better and has no complaints. Departure Time of Disposition: 07:46 Disposition: 09 ADMITTED INPATIENT Admission Level of Care: PCU with Tele Impression: Primary Impression: Severe sepsis Additional Impressions: Urinary tract infection Acute kidney injury Referrals: NO PRIMARY CARE PROVIDER (PCP) Critical Care Note Total Time (mins): 60 Critical Care Note Critical conditions addressed for impending deterioration include: metabolic, renal, Associated risk factors involving deterioration include: hypotension, metabolic changes, dehydration, acidosis, The very real possibility of a deterioration of this patient's condition required the highest level of my preparedness for sudden, emergent intervention. I provided critical care services, which included medication orders, frequent reevaluations of the patient's condition and response to treatment, ordering and reviewing test results, and discussing the case with necessary consultants. Critical care time was exclusive of necessary procedure time. The critical care time associated with the care of the patient was [] minutes. Signature Scribe Signature: No scribe Attestation: The note accurately reflects work and decisions made by me.Armin Still MD 02/01/25 02:43 No scribe ARMIN STILL MD Jan 31, 2025 06:00 LENA CHURCH MD Jan 31, 2025 07:51
[2025-01-31] MEDS: normal saline 1000ml 1,000 ML IV ONE (06:08)
[2025-01-31] MEDS: NORepinephrine 8mg/ 250ml NS 250 ML IV SCH (06:10)
[2025-01-31] MEDS ORDERED: NORepinephrine 8mg/ 250ml NS 250 ML IV SCH (06:10)
[2025-01-31] MEDS: ringers solution, lactated 1000ml IV soln IV ONE (06:56)
[2025-01-31 06:59] LABS: MEAN PLATELET VOLUME 6.4 FL (7.4-10.4); RED CELL DISTRIBUTION WIDTH 14.5 % (11.5-14.5)
--- NOTE | 2025-01-31 06:59 | ELECTROCARDIOGRAPH REPORT ---
[facility] Test Date: 2025-01-31 Test Time: 05:56:34 Pat Name: JOSE MARQUEZ Department: EMERGENCY ROOM Room: [place] [address] Gender: F Printing Assistant: RAAD : [id number] Requested By: DEPARTMENT EMERGENCY Order Number: [id number] Reading MD: Dr. Lester Loza Measurements Intervals [place] Rate: 121 P: 55 MA: 100 QRS: 14 QRSD: 101 T: 12 QT: 355 QTc: 504 Interpretive Statements Sinus tachycardia Low voltage, extremity and precordial leads Minimal ST depression, inferior leads Prolonged QT interval Electronically Signed On 02-04-2025 16:50:[address] Lester Loza Please click the below link to view image of tracing.
[2025-01-31 07:06] LABS: CREATININE 1.87 MG/DL (0.40-0.90); TOTAL CARBON DIOXIDE 24.7 MMOL/L (24-32); eCRCL 23 ML/MIN; eGFR 27 ML/MIN
[2025-01-31] MEDS: acetaminophen 1,000mg/100ml IV 100 ML IV ONE (08:18)
[2025-01-31] MEDS: normal saline 1000ml 1,000 ML IV SCH (08:25)
[2025-01-31] MEDS ORDERED: magnesium Cl slow-release 64mg tablet PO PRN (08:25)
[2025-01-31] MEDS ORDERED: mag hydrox/Alum hydrox/simeth 30ml oral suspension PO PRN (08:25)
[2025-01-31] MEDS ORDERED: potassium Cl 40MEQ/1/2NS 520ml 520 ML IV PRN (08:25)
[2025-01-31] MEDS ORDERED: potassium Cl 20 mEq SR tablet PO PRN (08:25)
[2025-01-31] MEDS ORDERED: magnesium hydroxide 30ml (MOM) UD suspension PO PRN (08:25)
[2025-01-31] MEDS ORDERED: magnesium sulf-water 4G/100mL 100 ML IV PRN (08:25)
[2025-01-31] MEDS ORDERED: HYDROcodone/acetaminophen 5mg/325mg tablet PO PRN (08:25)
[2025-01-31] MEDS ORDERED: ondansetron/PF 4mg/2ml inj IV PRN (08:25)
[2025-01-31] MEDS ORDERED: magnesium sulf-water 2g/50mL 50 ML IV PRN (08:25)
[2025-01-31] MEDS: ringers solution, lacted 1,000 ML IV ONE (08:28)
--- NOTE | 2025-01-31 08:52 | RADIOLOGY REPORT ---
Exam: CT CT ABDOMEN PELVIS History: Abdominal Pain Comparison Study: CT scan of the abdomen pelvis performed on 01/12/2025 Technique: Multidetector spiral CT of the abdomen and pelvis was performed from lung bases to pubic s ymphysis. Imaging was performed without intravenous contrast. Coronal and sagittal multiplanar reform ats were obtained from the axial data set by the technologist. Radiation Dose : 1. Abdomen/Pelvis: CTDIvol 35.8 mGy, DLP 1831.7 mGy*cm. Findings: Evaluation of vasculature and solid organs is limited due to lack of intravenous contrast use. Lung Bases: Lung bases are clear. Visualized portions of the heart and pericardium are unremarkable. Liver: The liver is normal in size. No focal lesions. Diffusely hypoattenuating liver parenchyma con sistent with hepatic steatosis. Gallbladder and Biliary Tree: The gallbladder is unremarkable. No intrahepatic or extrahepatic biliar y ductal dilatation. Spleen: Unremarkable Pancreas: The pancreas is grossly unremarkable. Adrenal Glands: Unremarkable Kidneys: There is a horseshoe kidney. There is interval placement of a right nephro ureteral stent wi th the tips coiled in the right renal pelvis moiety and the right-side of the urinary bladder. There is decreased size of a right staghorn calculus since the prior study though difficult to measure due to the shape of the stone however, the largest portion measures about 1.9 cm. Additional bilateral no nobstructive intrarenal calculi are present throughout the right and left moiety of the horseshoe kid lucio including a stable left staghorn renal calculus measuring 2.3 cm. There is perinephric fat strand ing. There is interval development of gas in the right renal pelvis at the site of the previously see n staghorn calculus. Slightly dilated right renal pelvis is similar to the prior study. GI tract: The stomach is grossly normal in appearance. No evidence of small bowel wall thickening or abnormal dilatation to suggest bowel obstruction. The colon is unremarkable. The appendix is not visu alized, however no inflammatory changes in the right lower quadrant to suggest acute appendicitis. Peritoneum/mesentery/retroperitoneum. No evidence of free intraperitoneal air. No ascites. Lymph nodes: Stable bilateral mildly prominent retroperitoneal lymph nodes and bilateral pelvic sidew all lymph nodes. Abdominal Wall: Unremarkable. Vasculature: The visualized abdominal aorta is normal in size and caliber. Evaluation of abdominal a nd pelvic vessels is limited due to lack of intravenous contrast. Urinary Bladder: Wall thickening in the urinary bladder. Pelvic Organs: Unremarkable Musculoskeletal: No aggressive focal bony lesions, acute fractures or dislocation. IMPRESSION: 1. 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 Staghorn calculus shows slight decrease in stone burden in the right moiety with interval development of gas in the right renal pelvis. Gas c ould be related to presence of the catheter or infection. Correlation with the clinical symptoms is r ecommended. Stable slight dilatation of the right renal pelvis. 2. Additional nonobstructive intrarenal calculi in both moieties of the horseshoe kidney similar to p rior study. 3. Bladder wall thickening. Cystitis is not excluded. 4. Hepatic steatosis.
[2025-01-31] MEDS ORDERED: VANCOMYCIN 2GM/400ML H20 (PEG) 400 ML IV ONE (09:00)
[2025-01-31] MEDS: VANCOMYCIN 1.75GM/WATER FOR INJ (PEG) 350 ML IVPB IV ONE (09:35)
[2025-01-31] MEDS ORDERED: dextrose 50%-water 50ml dispensing syringe IV PRN ×2 (09:45)
[2025-01-31] MEDS ORDERED: DEXTROSE 15 GM of carb/4 tabs (each vial/BOTTLE has 4 tablets) PO PRN ×2 (09:45)
[2025-01-31] MEDS ORDERED: glucagon, human recombinant 1mg kit SUBCUT PRN (09:45)
[2025-01-31] MEDS ORDERED: ROPI1TAB47 PO (09:52)
[2025-01-31] MEDS ORDERED: ATOR40TA PO (09:52)
[2025-01-31] MEDS ORDERED: ERGO125018 PO (09:52)
[2025-01-31] MEDS ORDERED: METF-1203 PO (09:52)
[2025-01-31] MEDS ORDERED: LACT1CAP55 PO (09:52)
[2025-01-31] MEDS ORDERED: ASPI-1397 PO (09:52)
[2025-01-31 10:20] VITALS: BP 90/56; PULSE 101; RESP 20; TEMP 98; O2SAT 97
[2025-01-31 10:47] VITALS: RESP 19; O2SAT 98
[2025-01-31] MEDS: INSULIN LISPRO 100 UNIT/ML INSULN.PEN MULTI-DOSE SQ SCH (13:50)
[2025-01-31 15:00] VITALS: BP 94/51; PULSE 93; RESP 14; TEMP 97; O2SAT 97
[2025-01-31 18:00] VITALS: BP 111/53; PULSE 94; RESP 16; TEMP 97.9; O2SAT 94
--- NOTE | 2025-01-31 19:03 | HISTORY AND PHYSICAL ---
History & Physical Providers to CC ~ History of Present Illness Reason for Admit\Complaint: Infection in urine History of Present Illness A 59-year-old female with past medical history of diabetes, CHF, CVA with no residual deficits presented as a transfer from [facility] . Patient is poor historian unable to give much details about her history, record reviewed from [facility] and patient mentioned to them that patient had procedure done in [place] for urethral stent removal. She went over there due to trembling all over. Patient had CT abdomen and pelvis without IV contrast done in [facility] which showed extensive nephrolithiasis in right kidney. Double-J catheter in place. Perinephric fat stranding predominantly near the right renal pelvis indicating acute pyelonephritis and tract infection no hydronephrosis. Dr. Andrew discussed the case with Dr. Curry. He provided lithotripsy yesterday. Patient still has right nephroureteral stent. He has reviewed the CT scan. There was no need for urological intervention at this time. Patient only needs IV antibiotics. Hospitalist services contacted for admission and further management. All labs and diagnostic workup done in [facility] reviewed. WBC 16.40 hemoglobin 13.3 hematocrit 40.0 blood sugar 437 creatinine 1.76 GFR 33 AST 26. Urine testing showed urine glucose greater than 1000 3+ blood. Lactate 4.7 rest of the labs unremarkable BNP 55. Allergies: Coded Allergies: codeine (Verified Allergy, Mild, VERTIGO, 01/31/25) lactose (Verified Allergy, Mild, N/V, 01/31/25) sulfamethoxazole (Verified Allergy, Mild, RASH, 01/31/25) trimethoprim (Verified Allergy, Mild, RASH, 01/31/25) Uncoded Allergies: CEFTRIXONE (Allergy, Mild, RASH, 01/13/25) Home Medications Home Medications Active Reported Culturelle Capsule (L. Rhamnosus GG/Inulin) 10 Billion Cell-200 Mg Cap.sprink 1 Cap PO DAILY Lipitor* (Atorvastatin Calcium) 40 Mg Tablet 1 Tab PO DAILY new rx, pt said she hasn't started taking yet Ropinirole Hcl 1 Mg Tablet 1.5 Tab PO QID Aspirin EC (Aspirin) 81 Mg Tablet.dr 1 Tab PO DAILY Vitamin D2 (Ergocalciferol (Vitamin D2)) 1,250 Mcg (34753 Unit) Capsule 1 Cap PO Q7D Metformin HCl 500 Mg Tablet 1 Tab PO BID pt stated she has not started taking med yet Furosemide 20 Mg Tablet 1 Tab PO DAILY Novolin N (Nph, Human Insulin Isophane) 100 Unit/Ml Vial SQ Farxiga (Dapagliflozin Propanediol) 5 Mg Tablet 1 Tab PO DAILY Past Medical History Past Medical History Infected kidney stone, right s/p right ureteral stent placement on 01/13/2025 Staghorn calculi, bilateral Obstructive uropathy 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 uropathy-improved Uncontrolled type 2 diabetes mellitus Chronic diastolic CHF, not in acute exacerbation Possible sleep apnea Past Surgical History Surgical History Comment Infected kidney stone, right s/p right ureteral stent placement on 01/13/2025 Past Social History Social History Comment Smoked for three years and quit at the age of 19 Former marijuana consumption, quit currently Denies alcohol or illicit drug use Lives at home with her has been Goes to [facility] for primary care Patient she lives with her currently nonambulatory use wheelchair and able to transfer by herself or her helps ROS ROS All other systems reviewed in full and negative except for the pertinent positives mentioned in HPI Exam Vitals: Vital Signs Date Time Temp Pulse Resp B/P (MAP) Pulse Ox O2 Delivery O2 Flow Rate FiO2 01/31/25 10:39 102 01/31/25 10:20 98.0 20 90/56 (67) 97 Room Air 01/31/25 09:08 0 General: General-patient not in any acute distress, alert awake oriented, chronically ill-appearing , morbidly obese, looks comfortable HEENT-atraumatic normocephalic, neck supple without elevated JVD, no thyromegaly or carotid bruit. No lymphadenopathy bilaterally. Eyes-no icterus or pallor seen in eyes Chest-clear to auscultation bilaterally, breathing nonlabored no tachypnea, no wheezing, no crepitation, no crackles.. Heart-S1-S2 normal, regular heart rate no murmur Abdomen bowel sounds positive on auscultation, soft nondistended nontender no guarding, no rigidity, Skin no active skin rash Neurology-grossly intact, nonfocal alert awake oriented Extremity- no pedal edema , extremity sensitive to palpation Psychiatry - patient is not confused or agitated cooperated during physical examination Diagnostic Data Last Recorded Lab Results: 01/31/25 0647 01/31/25 0647 Advance Care Planning Advanced Care plannin - 30 Minutes Additional Plan A 59-year-old female with past medical history of diabetes, CHF, CVA with no residual deficits presented as a transfer from [facility] . # status post lithotripsy, has right nephro ureteral stent admitted for sepsis - ordered levofloxacin and vancomycin. Dr. Andrew discussed the case with Dr. Curry. He provided lithotripsy yesterday. Patient still has right nephroureteral stent. He has reviewed the CT scan. There was no need for urological intervention at this time. Patient only needs IV antibiotics. # type 2 uncontrolled diabetes-on hypo and hyperglycemic protocol # history of CHF BNP 179- no clinical signs of fluid overload # restless legs syndrome on ropinirole # possible sleep apnea # code status discussed with the patient patient wishes to stay full code time spent 16 minutes in discussing code status. Patient's current condition is guarded we will continue to follow patient in a.m. patient needs PT evaluation before her discharge. Date of Service: Jan 31, 2025 Billing Provider: EVAN TERRELL MD Common Visit Codes: 56291-TEIRQRO INP/OBS CARE (HIGH) Secondary Visit Codes: 21373-[id number] CARE PLAN 30 MINUTES EVAN TERRELL MD Jan 31, 2025 19:03
[2025-01-31 20:00] VITALS: RESP 18; O2SAT 96
[2025-01-31] MEDS ORDERED: docusate sod 100mg capsule PO SCH (20:00)
[2025-01-31 22:00] VITALS: BP 115/59; PULSE 104; RESP 20; TEMP 98.5; O2SAT 98
[2025-01-31] MEDS: heparin, porcine 5000 units/ml vial SQ SCH (22:23)
[2025-02-01] VITALS (8 sets, daily range): BP systolic 105–132; BP diastolic 46–79; PULSE 71–108; RESP 16–31; TEMP 97.1–99.2; O2SAT 93–98
[2025-02-01 06:25] LABS: MEAN PLATELET VOLUME 6.5 FL (7.4-10.4); RED CELL DISTRIBUTION WIDTH 14.4 % (11.5-14.5)
[2025-02-01 06:37] LABS: CREATININE 1.35 MG/DL (0.40-0.90); TOTAL CARBON DIOXIDE 29.7 MMOL/L (24-32); eCRCL 31 ML/MIN; eGFR 40 ML/MIN
[2025-02-01] MEDS: EMPAGLIFLOZIN 10 MG TABLET PO SCH (09:23)
[2025-02-01] MEDS: lactobacillus rhamnosus 10,000 MMU CELLS/CAPSULE PO SCH (09:23)
[2025-02-01] MEDS: aspirin 81mg, enteric-coated 1 TAB TABLET.DR PO SCH (09:23)
[2025-02-01] MEDS: levoFLOXACIN-Levaquin 500mg/D5 100 ML IV SCH (09:24)
[2025-02-01] MEDS: vancomycin/NS 1 GM ADD-VANTAGE 250 ML X 1 DOSE IV SCH (09:40)
--- NOTE | 2025-02-01 19:17 | PROGRESS NOTE ---
Daily Progress Note Providers to CC ~ Antibiotic Timeout Antibiotic Ordered?: Yes Subjective Patient was seen in presence of nursing staff, her ( was on phone ) . Patient's current all labs diagnostic workup discussed in visit. All questions and concerns address appropriately in answered to the best of my professional medical knowledge. Patient had physical therapy evaluation done today. Patient's labs improving. Objective Vital Signs Date Time Temp Pulse Resp B/P (MAP) Pulse Ox O2 Delivery O2 Flow Rate FiO2 02/01/25 15:00 97.3 92 20 111/65 (80) 96 Room Air 02/01/25 08:00 0.0 Result Diagram: 02/01/25 0545 02/01/25 0545 General-patient not in any acute distress, alert awake oriented, chronically ill-appearing , morbidly obese, looks comfortable HEENT-atraumatic normocephalic, neck supple without elevated JVD, no thyromegaly or carotid bruit. No lymphadenopathy bilaterally. Eyes-no icterus or pallor seen in eyes Chest-clear to auscultation bilaterally, breathing nonlabored no tachypnea, no wheezing, no crepitation, no crackles.. Heart-S1-S2 normal, regular heart rate no murmur Abdomen bowel sounds positive on auscultation, soft nondistended nontender no guarding, no rigidity, Skin no active skin rash, healing wound present over right lower leg Neurology-grossly intact, nonfocal alert awake oriented, signs of memory loss present Extremity- no pedal edema , extremity sensitive to palpation Psychiatry - patient is not confused or agitated cooperated during physical examination Problem\Assessment\Plan A 59-year-old female with past medical history of diabetes, CHF, CVA with no residual deficits presented as a transfer from [facility] . # status post lithotripsy, has right nephro ureteral stent admitted for sepsis - ordered levofloxacin and vancomycin. Dr. Andrew discussed the case with Dr. Curry. He provided lithotripsy yesterday. Patient still has right nephroureteral stent. He has reviewed the CT scan. There was no need for urological intervention at this time. Patient only needs IV antibiotics. # type 2 uncontrolled diabetes-on hypo and hyperglycemic protocol # history of CHF BNP 179- no clinical signs of fluid overload # restless legs syndrome on ropinirole # possible sleep apnea # code status discussed with the patient patient wishes to stay full code time spent 16 minutes in discussing code status. Patient's current condition is guarded we will continue to follow patient in a.m. classification case manager aware regarding patient's discharge plan needs Date of Service: Feb 01, 2025 Billing Provider: EVAN TERRELL MD Common Visit Codes: [id number] INP/OBS CARE(HIGH) EVAN TERRELL MD Feb 01, 2025 19:17
[2025-02-01] MEDS: vancomycin/NS 1 GM ADD-VANTAGE 250 ML IV SCH (23:00)
[2025-02-02 02:00] VITALS: BP 142/53; PULSE 92; RESP 18; TEMP 97.1; O2SAT 99
[2025-02-02 06:00] VITALS: BP 104/70; PULSE 91; RESP 15; TEMP 98.3; O2SAT 98
[2025-02-02 06:26] LABS: MEAN PLATELET VOLUME 6.8 FL (7.4-10.4); RED CELL DISTRIBUTION WIDTH 14.3 % (11.5-14.5)
[2025-02-02 06:42] LABS: CREATININE 1.10 MG/DL (0.40-0.90); TOTAL CARBON DIOXIDE 27.0 MMOL/L (24-32); eCRCL 39 ML/MIN; eGFR 50 ML/MIN
[2025-02-02 08:00] VITALS: RESP 15; O2SAT 98
[2025-02-02] MEDS: potassium Cl 20 mEq SR tablet PO PRN (08:48)
[2025-02-02] MEDS: levoFLOXACIN-Levaquin 250mg/D5 50 ML IV SCH (08:56)
[2025-02-02] MEDS ORDERED: LEVO-65 PO (09:14)
[2025-02-02 11:00] VITALS: BP 135/62; PULSE 90; RESP 15; TEMP 97.3; O2SAT 98
--- NOTE | 2025-02-02 14:25 | DISCHARGE SUMMARY ---
Discharge Summary Providers to CC ~ Discharge Summary Admission Diagnosis: Acute kidney injury on CKD, Sepsis , borderline blood pressure Hospital Course DATE OF ADMISSION: January 31, 2025 DATE OF DISCHARGE: February 02, 2025 CBC testing done on February 02, 2025 WBC 7.8 hemoglobin 10.1 hematocrit 30.0 plat elet count 228. Serum chemistry done on February 02, 2025 sodium 138 potassium 3.4, serum creatinine 1.10 GFR 50 normal liver enzymes. Procalcitonin improved to 0.62. Blood culture showed no growth after two days CT ABDOMEN PELVIS-IMPRESSION: 1. 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 Staghorn calculus shows slight decrease in stone burden in the right moiety with interval development of gas in the right renal pelvis. Gas could be related to presence of the catheter or infection. Correlation with the clinical symptoms is recommended. Stable slight dilatation of the right renal pelvis. 2. Additional nonobstructive intrarenal calculi in both moieties of the horseshoe kidney similar to prior study. 3. Bladder wall thickening. Cystitis is not excluded. 4. Hepatic steatosis. Discharge Diagnosis\\Comment: status post lithotripsy, has right nephro ureteral stent admitted for sepsis type 2 uncontrolled diabetes, history of CHF BNP 179, restless legs syndrome, possible sleep apnea Operations\\Procedures: None Consultants: None Complications: None Condition on DC: Stable New Medications: Levofloxacin (Levofloxacin) 500 Mg Tablet 1 TAB PO DAILY for 7 Days, #7 TAB Continued Medications: Aspirin (Aspirin EC) 81 Mg Tablet. 1 TAB PO DAILY Atorvastatin Calcium* (Lipitor*) 40 Mg Tablet 1 TAB PO DAILY, TAB new rx, pt said she hasn't started taking yet Dapagliflozin Propanediol (Farxiga) 5 Mg Tablet 1 TAB PO DAILY Ergocalciferol (Vitamin D2) (Vitamin D2) 1,250 Mcg (34027 Unit) Capsule 1 CAP PO Q7D L. Rhamnosus GG/Inulin (Culturelle Capsule) 10 Billion Cell-200 Mg Cap.sprink 1 CAP PO DAILY, CAP 0 Refills Metformin HCl (Metformin HCl) 500 Mg Tablet 1 TAB PO BID pt stated she has not started taking med yet Nph, Human Insulin Isophane (Novolin N) 100 Unit/Ml Vial SQ Ropinirole Hcl (Ropinirole Hcl) 1 Mg Tablet 1.5 TAB PO QID Discontinued Medications: Furosemide (Furosemide) 20 Mg Tablet 1 TAB PO DAILY Discharge Summary: As permy admitting history and physical exam" A 60-year-old female with past medical history of diabetes, CHF, CVA with residual deficits presented as a transfer from [facility] . Patient is poor historian unable to give much details about her history, record reviewed from [facility] and patient mentioned to them that patient had procedure done in [place] for urethral stent removal. She went over there due to trembling all over. Patient had CT abdomen and pelvis without IV contrast done in [place] which showed extensive nephrolithiasis in right kidney. Double-J catheter in place. Perinephric fat stranding predominantly near the right renal pelvis indicating acute pyelonephritis and tract infection no hydronephrosis. Dr. Andrew discussed the case with Dr. Curry. He provided lithotripsy yesterday. Patient still has right nephroureteral stent. He has reviewed the CT scan. There was no need for urological intervention at this time. Patient only needs IV antibiotics. Hospitalist services contacted for admission and further management. All labs and diagnostic workup done in [place] reviewed. WBC 16.40 hemoglobin 13.3 hematocrit 40.0 blood sugar 437 creatinine 1.76 GFR 33 AST 26. Urine testing showed urine glucose greater than 1000 3+ blood. Lactate 4.7 rest of the labs unremarkable BNP 55." During hospitalization patient was treated for # status post lithotripsy, has right nephro ureteral stent admitted for sepsis - ordered levofloxacin and vancomycin. Dr. Andrew discussed the case with Dr. Curry. He provided lithotripsy yesterday. Patient still has right nephroureteral stent. He has reviewed the CT scan. There was no need for urological intervention at this time. Patient only needs IV antibiotics. We continued antibiotic therapy for sepsis # type 2 uncontrolled diabetes-was on hypo and hyperglycemic protocol # history of CHF BNP 179- no clinical signs of fluid overload # restless legs syndrome on ropinirole # possible sleep apnea Patient is feeling better she has been afebrile and getting discharged home in stable condition. Patient is seen and examined on the day of discharge. All labs, diagnostic workup and discharge plan discussed with patient in detail before her discharge. All questions and queries answered to the best of my professional medical knowledge. I heard patient's concerns and address appropriately. Discharge instructions provided to the patient. Patient needs follow-up with primary care physician Urology specialist Dr. Curry in outpatient setting in 1-2 weeks. Please provide fall precautions document. Repeat CBC BMP sed rate and procalcitonin with PCP in five days. Increase oral fluid more than 1000 mL per day and continue to monitor renal function. Further management of uncontrolled diabetes as per PCP. Patient needs to continue physical therapy in outpatient setting with PCP General-patient not in any acute distress, alert awake oriented, chronically ill-appearing , morbidly obese, looks comfortable HEENT-atraumatic normocephalic, neck supple without elevated JVD, no thyromegaly or carotid bruit. No lymphadenopathy bilaterally. Eyes-no icterus or pallor seen in eyes Chest-clear to auscultation bilaterally, breathing nonlabored no tachypnea, no wheezing, no crepitation, no crackles.. Heart-S1-S2 normal, regular heart rate no murmur Abdomen bowel sounds positive on auscultation, soft nondistended nontender no guarding, no rigidity, Skin no active skin rash, healing wound present over right lower leg Neurology-grossly intact, nonfocal alert awake oriented, signs of memory loss present Extremity- no pedal edema , extremity sensitive to palpation Psychiatry - patient is not confused or agitated cooperated during physical examination *Problems/Diagnosis: (1) Acute kidney injury Status: Acute (2) Sepsis Total Time Spent on D/C: > 30 Minutes Date of Service: Feb 02, 2025 Billing Provider: EVAN TERRELL MD Common Visit Codes: 53351-PBV/OBS DISCH DAY >30min EVAN TERRELL MD Feb 02, 2025 14:19
[2025-02-02] MEDS ORDERED: VANCOMYCIN LEVEL IV ONE (21:30)
[2025-02-03] MEDS ORDERED: VANCOMYCIN LEVEL IV ONE (09:30)
== END 2025-02-02 12:22 | disposition home or self-care (01) | DRG 720 ==
LOC: ER 05:44 → ED HOLD 08:29 → PCU 3S 10:16
PROVIDERS: ADMIT Internal Medicine; ATTEND Internal Medicine
DX: A41.9 Sepsis, unspecified organism (principal); N17.9 Acute kidney failure, unspecified; N10 Acute pyelonephritis; I50.32 Chronic diastolic (congestive) heart failure; G47.30 Sleep apnea, unspecified; G25.81 Restless legs syndrome; R65.20 Severe sepsis without septic shock; Z88.5 Allergy status to narcotic agent; Z88.8 Allergy status to other drugs, medicaments and biological substances; Z90.710 Acquired absence of both cervix and uterus; Z88.2 Allergy status to sulfonamides; Z88.3 Allergy status to other anti-infective agents; Z79.84 Long term (current) use of oral hypoglycemic drugs; Z87.442 Personal history of urinary calculi
CPT/HCPCS: 36415; 74176; 80053; 82948; 83605; 84145; 85025; 87040; 87081; 93005; 97161; 97530; 97535; A6212; A6223; A6250; A6258; G0378; J0131; J1644; J1815; J1956; J3373; J3375; J7030; J7040; J7120